=== PATIENT | female | born 1940 | race Caucasian/White ===

== ENCOUNTER 2018-04-01 13:00 | Inpatient (IN) ==
[2018-04-01 13:25] LABS: Appearance,Urine CLEAR; Bilirubin,Urine NEG (NEG); Color,Urine STRAW; Glucose,Urine (UA) NEGATIVE (NEG); Leukocyte Esterase,Urine NEG /uL (NEG); Protein,Urine NEG (NEG); Specific Gravity,Urine 1.009 (1.000-1.035); Urine Blood NEG mg/dL (<0.03); Urobilinogen,Urine NEG (NEG)
[2018-04-01 15:26] LABS: Basophils # (Auto) 0 K/mcL (0.0-0.3); Basophils % (Auto) 0.5 % (0.0-2.0); Eosinophils # (Auto) 0.1 K/mcL (0.0-0.7); Eosinophils % (Auto) 1.3 % (0.0-7.0); Granulocytes % (Auto) 69.6 % (38.0-78.0); Lymphocytes # (Auto) 1.2 K/mcL (1.5-4.8); Mean Cell Volume 90.2 fL (80.0-100.0); Mean Corpuscular HGB Conc 33.4 g/dL (31.0-36.0); Mean Corpuscular Hemoglobin 30.2 pg (26.0-34.0); Monocytes # (Auto) 0.4 K/mcL (0.1-0.9); Monocytes % (Auto) 6.6 % (1.0-12.0); Platelet Count 267 K/mcL (140-440); RBC 3.84 M/mcL (4.00-5.20); Red Cell Distribution Width 14.5 % (11.5-14.5)
[2018-04-01 15:37] LABS: Blood Urea Nitrogen 38 mg/dl (8-23)
[2018-04-09] MEDS ORDERED: ceFAZolin 1 GM VIAL IV SCH ×2 (06:00→07:15)
[2018-04-09] MEDS ORDERED: GLYCOPYRROLATE 0.2 MG/ML VIAL IV ONE (07:45)
[2018-04-09] MEDS ORDERED: ePHEDrine 50 MG/ML AMPUL IV ONE (07:45)
[2018-04-09] MEDS ORDERED: LIDOCAINE HCL/PF 100 MG/5 ML SYRINGE IV ONE (07:45)
[2018-04-09] MEDS ORDERED: fentaNYL 250 MCG/5 ML VIAL IV ONE (07:45)
[2018-04-09] MEDS ORDERED: ONDANSETRON 4 MG/2 ML VIAL IV ONE (07:45)
[2018-04-09] MEDS ORDERED: DEXAMETHASONE 10 MG/ML VIAL IV ONE (07:45)
[2018-04-09] MEDS ORDERED: MIDAZOLAM 5 MG/5 ML VIAL IV ONE (07:45)
[2018-04-09] MEDS ORDERED: PROPOFOL 200 MG/20 ML VIAL IV ONE (07:45)
[2018-04-09] MEDS ORDERED: TRANEXAMIC ACID 1,000 MG/10 ML VIAL IV ONE (08:44)
[2018-04-09] MEDS ORDERED: GENTAMICIN SULFATE 800 MG/20 ML VIAL IR ONE (08:44)
[2018-04-09] MEDS ORDERED: MEPERIDINE 25 MG/ML SYRINGE IV PRN (09:48)
[2018-04-09] MEDS ORDERED: FLUMAZENIL 0.1 MG/ML ML IV PRN (09:48)
[2018-04-09] MEDS ORDERED: METOPROLOL TARTRATE 5 MG/5 ML VIAL IV PRN (09:48)
[2018-04-09] MEDS ORDERED: NALOXONE HCL 0.4 MG/ML VIAL IV PRN (09:48)
[2018-04-09] MEDS ORDERED: PROMETHAZINE 25 MG/ML VIAL IV PRN (09:48)
[2018-04-09] MEDS ORDERED: diphenhydrAMINE 50 MG/ML VIAL IV PRN (09:48)
[2018-04-09] MEDS ORDERED: IPRATROPIUM/ALBUTEROL 3 ML AMPUL.NEB NEB PRN (09:48)
[2018-04-09] MEDS ORDERED: ATROPINE SULFATE 0.4 MG/ML VIAL IV PRN (09:48)
[2018-04-09] MEDS ORDERED: ONDANSETRON 4 MG/2 ML VIAL IV PRN ×2 (09:48→10:20)
[2018-04-09] MEDS ORDERED: ACETAMINOPHEN 1,000 MG/100 ML BOTTLE IV ONE (09:48)
[2018-04-09] MEDS ORDERED: ePHEDrine 50 MG/ML AMPUL IV PRN (09:48)
[2018-04-09] MEDS ORDERED: HYDROmorphone 2 MG/ML VIAL IV PRN (09:48)
[2018-04-09] MEDS ORDERED: METHOCARBAMOL 1,000 MG/10 ML VIAL IV PRN (09:48)
[2018-04-09] MEDS ORDERED: LACTATED RINGERS 1,000 ML IV SCH (10:00)
[2018-04-09] MEDS ORDERED: ACETAMINOPHEN 325 MG TABLET PO PRN (10:20)
[2018-04-09] MEDS ORDERED: POLYETHYLENE GLYCOL 3350 17 GM PACKET PO PRN (10:20)
[2018-04-09] MEDS ORDERED: BISACODYL 10 MG SUPP.RECT PR PRN (10:20)
[2018-04-09] MEDS ORDERED: FLEETS ADULT ENEMA PR PRN (10:20)
[2018-04-09] MEDS ORDERED: BENZOCAINE/MENTHOL 1 LOZENGE PO PRN (10:20)
[2018-04-09] MEDS ORDERED: MAGNESIUM HYDROXIDE 30 ML ORAL.SUSP PO PRN (10:20)
[2018-04-09] MEDS ORDERED: ONDANSETRON ODT 4 MG TABLET PO PRN (10:28)
[2018-04-09] MEDS ORDERED: 0.9 % SODIUM CHLORIDE 1,000 ML IV SCH (10:30)
[2018-04-09] MEDS ORDERED: BUPIVACAINE 0.5% 50 ML VIAL IJ ONE (10:31)
[2018-04-09] MEDS: fentaNYL 100 MCG/2 ML VIAL IV PRN ×2 (10:59→11:22)
--- NOTE | 2018-04-09 11:08 | Brief Operative Note ---
Date of procedure: 04/09/18 Pre-op diagnosis: DJD right ankle Post-op diagnosis: same Procedure: TAR Grafts/Implants: Yes (INvidae TAR) Anesthesia: JANET Surgeon: Cristian Buckley [facility] Psychiatrist: Danis Chambers Estimated blood loss (cc): 50 Tourniquet Time (Minutes): 120 Specimens Removed/Pathology: none sent Condition: stable Disposition: PACU
--- NOTE | 2018-04-09 11:51 | Operative Note ---
DATE OF OPERATION: 04/09/2018 PREOPERATIVE DIAGNOSIS: Osteoarthritis of the right ankle. POSTOPERATIVE DIAGNOSIS: Osteoarthritis of the right ankle. OPERATION: Right total ankle replacement. CONVERTER SUPERVISOR: Danis Chambers PA-C ANESTHESIA: General done by Annmarie Almeida CRNA. TOURNIQUET TIME: Calf level tourniquet 2 hours. ESTIMATED BLOOD LOSS: 50 mL SUMMARY OF PROCEDURE: General anesthesia was attained. The right foot, ankle, and leg were prepped and draped. A calf level tourniquet was put up. A 12.5 cm incision was made from the tibia to the talonavicular joint just medial to the tibialis anterior. This was taken down to the interval between the tibialis anterior and the extensor hallucis longus. This interval was developed. The extensor retinaculum was split, but preserved. The two bones were dissected out subperiosteally as were the gutters. The prophecy guide was placed on the tibia and position confirmed to be appropriate for the cuts on C-arm views. The cutting guide was placed. The cut was made. The bone from the tibia was removed. We then used the talar cutting guide. This was placed on the talus. The proximal talar cut was made. Preparation of the tibia was then started. We used the bracket for the C-arm as well as the guide to find the intramedullary canal. A stab incision was made in the plantar surface of the plantar fascia. The 6 mm guide was then used to open the cortices up to about 6 cm above the joint line. We then reamed to 14 and then at the very bottom 16 mm diameter in the tibia. The tibial components were then advanced into the tibia using a total of 3 stem pieces and the base plate. The sizing of the tibia was confirmed to be a 3 long. Attention was then turned to the talus. The talus was prepared and then positioned. The drill holes were made for the stem and also for the front pegs. The talar component was next impacted. We then did sizing of the poly and the best combination of full dorsiflexion and stability was with a 10 mm component. This was impacted using the appropriate instrumentation. The tourniquet was let down. Final C-arm x-rays showed satisfactory position of the components. The retinacular layer was closed with [id number] sutures of 2-0 Monocryl. The subcutaneous tissue was closed with 2-0 Monocryl and the knee incision was handsewn with mattress sutures of 2-0 nylon. The area was infiltrated with about 20 mL of Marcaine for postoperative analgesia and a sterile compressive dressing was applied followed by a Nick boot. The sponge and needle count was correct. The patient tolerated the procedure well and was taken to the recovery room in stable condition. TJF:august Job ID: [id number] Doc ID: [id number] Cristian Buckley MD
--- NOTE | 2018-04-09 12:06 | XRay Report ---
CLINICAL INFORMATION: Postsurgical follow-up TECHNIQUE: AP, oblique, lateral right ankle COMPARISON: None. FINDINGS: Bony detail is obscured by overlying cast. Status post right tibiotalar arthroplasty. Alignment appears anatomic IMPRESSION: Status post right tibiotalar arthroplasty Interpreted and Authenticated by: Hugo Estrada 04/09/18
[2018-04-09] MEDS: HYDROcodone/APAP 10/325MG TABLET PO PRN (12:16)
[2018-04-09] MEDS: 0.9 % SODIUM CHLORIDE 10 ML SYRINGE IV SCH ×2 (12:19→21:01)
[2018-04-09] MEDS ORDERED: ACETAMINOPHEN 1,000 MG/100 ML BOTTLE IV PRN (14:10)
[2018-04-09] MEDS: HYDROmorphone 2 MG/ML VIAL IV PRN ×2 (14:30→20:09)
[2018-04-09] MEDS: ceFAZolin 1 GM VIAL IV SCH (15:25)
[2018-04-09] MEDS: NACL 0.9% W/KCL 20MEQ 1,000 ML IV SCH (17:57)
[2018-04-09] MEDS: APIXABAN 2.5 MG TABLET PO SCH (20:13)
[2018-04-09] MEDS: PRAMIPEXOLE 0.25 MG TABLET PO SCH (20:13)
[2018-04-09] MEDS: QUEtiapine 100 MG TABLET PO SCH (20:13)
[2018-04-09] MEDS: SENNOSIDES 1 TABLET PO SCH (20:14)
[2018-04-09] MEDS: DOCUSATE SODIUM 100 MG CAPSULE PO SCH (20:14)
[2018-04-09] MEDS: TRAVOPROST OPHTH DROPS BOTTLE 2.5ML OU SCH (20:17)
[2018-04-09] MEDS: Dorzolamide/Timolol/Pf [Cosopt Pf Eye Drops] OU SCH (20:17)
[2018-04-09] MEDS ORDERED: APIXABAN 2.5 MG TABLET PO SCH (21:00)
[2018-04-09] MEDS ORDERED: TEMAZEPAM 15 MG CAPSULE PO PRN (21:00)
[2018-04-10] MEDS: HYDROcodone/APAP 10/325MG TABLET PO PRN ×2 (00:05→04:16)
[2018-04-10] MEDS: ceFAZolin 1 GM VIAL IV SCH (00:06)
[2018-04-10] MEDS: NACL 0.9% W/KCL 20MEQ 1,000 ML IV SCH ×3 (04:23→21:10)
[2018-04-10] MEDS: 0.9 % SODIUM CHLORIDE 10 ML SYRINGE IV SCH ×3 (04:32→21:08)
[2018-04-10] MEDS: HYDROmorphone 2 MG/ML VIAL IV PRN ×2 (06:43→19:04)
--- NOTE | 2018-04-10 07:26 | Discharge Summary ---
Providers - Providers Patient information: Note initiated : 04/10/18 at 7:24 am Service Date, if different from initiated Date: [] Patient: Monisha Kelly 77 y/o F admitted on 04/09/18 for Right Total Ankle Replacement. Chief Complaint: [] Date of admission: 04/09/18 Discharge date: 04/10/18 Attending physician: Cristian Buckley Hospitalization Hospital course: Ankle arthritis- for replacement Discharge diagnosis: arthritis ankle Secondary discharge diagnosis: atrial fibrillation Reason for admission: surgery-replacement Procedures: Right TAR Complications: none Exam - Exam Clean and dry: Yes Weight bearing status: partial Ortho Discharge Plan - General - Patient Instructions Diet: Regular Diet Activity: partial weight bearing Dressing Care: Cover dressing in shower Additional Instructions: wheelchair - Follow Up Plan Follow Up Appointments: Danis Chambers PA-C [Physician Administrative Fellow] - 04/20/18 Disposition: Home, Self-Care Prognosis: Good Rehab Potential: Good I certify that the patient requires SNF services: No Overall status at discharge: patient is not back to baseline - Orders For Discharge Prescriptions: HYDROmorphone [Dilaudid] 0 mg IV Q2HP PRN #40 vial PRN Reason: Pain Level > 6 Pending Studies Resuscitation Status Full Code Diet Regular Diet Start FriApr 09 1316 Apixaban (Eliquis) 5 mg PO BID [facility] Last Admin: 04/09/18 20:13 Dose: 5 mg Docusate Sodium (Colace) 100 mg PO BID [facility] Last Admin: 04/09/18 20:14 Dose: 100 mg Hydromorphone HCl (Dilaudid) 0 mg IV Q2HP PRN PRN Reason: PAIN LEVEL > 6 Last Admin: 04/10/18 06:43 Dose: 0.5 mg Admin: 04/09/18 20:09 Dose: 0.5 mg Admin: 04/09/18 14:30 Dose: 0.5 mg Potassium Chloride/Sodium Chloride (Nacl 0.9% W/Kcl 20meq 1000ml) 1,000 mls @ 100 mls/hr IV .Q10H [facility] Last Admin: 04/10/18 04:23 Dose: Infusion: 04/10/18 04:17 Dose: 0 mls/hr Admin: 04/09/18 17:57 Dose: 100 mls/hr Dorzolamide/Timolol/Pf [Cosopt Pf Eye Drops] 1 dose OU BID [facility] Last Admin: 04/09/18 20:17 Dose: 1 dose Pramipexole Dihydrochloride (Mirapex) 0.125 mg PO [facility] Last Admin: 04/09/18 20:13 Dose: 0.125 mg Quetiapine Fumarate (Seroquel) 200 mg PO HS [facility] Last Admin: 04/09/18 20:13 Dose: 200 mg Senna (Senokot) 2 tab PO [facility] Last Admin: 04/09/18 20:14 Dose: 2 tab Sodium Chloride (Saline Flush) 10 ml IV Q8 [facility] Last Admin: 04/10/18 04:32 Dose: 10 ml Admin: 04/09/18 21:01 Dose: Not Given Admin: 04/09/18 12:19 Dose: Not Given Travoprost (Travatan Z Ophth Drops) 1 gtt OU [facility] Last Admin: 04/09/18 20:17 Dose: 1 gtt Shift Summary 04/10/18 04:37 Shift Summary by Natali Moore Patient slept well this shift. Medicated for right ankle/lower leg pain 6-8/10 with Dilaudid 0.5 mg x1 and [place] 10 2 tabs x2 with good effect. Minimal assisted pivot transfer from bed to bedside commode using FWW and GB. 25% wt bearing only on right foot. Voids adequately, PVR 0. IV on right hand saline locked this AM. Right lower leg cast and willam wrap in place. Dressing CDI. Patient refused to have ice pack, states " I cannot feel it". [place] 50's-68 bpm, BP stable, O2 sats 96% on RA. Initialized on 04/10/18 04:37 - END OF NOTE
[2018-04-10] MEDS: amLODIPine 10 MG TABLET PO SCH (08:23)
[2018-04-10] MEDS: LOSARTAN 50 MG TABLET PO SCH (08:23)
[2018-04-10] MEDS: METOPROLOL SUCCINATE 50 MG TAB.XL.24H PO SCH (08:23)
[2018-04-10] MEDS: MULTIVIT,THER IRON,CA,FA & MIN 1 TABLET PO SCH (08:23)
[2018-04-10] MEDS: APIXABAN 2.5 MG TABLET PO SCH ×2 (08:24→21:09)
[2018-04-10] MEDS: DOCUSATE SODIUM 100 MG CAPSULE PO SCH ×2 (08:24→21:09)
[2018-04-10] MEDS: VITAMIN D3 1,000 UNIT TABLET PO SCH (08:24)
[2018-04-10] MEDS: POTASSIUM CHLORIDE 20 MEQ TABLET PO SCH (08:24)
[2018-04-10] MEDS: SERTRALINE 50 MG TABLET PO SCH (08:25)
[2018-04-10] MEDS: FUROSEMIDE 20 MG TABLET PO SCH (08:25)
[2018-04-10] MEDS: Dorzolamide/Timolol/Pf [Cosopt Pf Eye Drops] OU SCH ×2 (10:24→21:12)
[2018-04-10] MEDS: HYDROmorphone 2 MG TABLET PO PRN ×4 (12:56→21:47)
[2018-04-10] MEDS: QUEtiapine 100 MG TABLET PO SCH (21:09)
[2018-04-10] MEDS: PRAMIPEXOLE 0.25 MG TABLET PO SCH (21:09)
[2018-04-10] MEDS: SENNOSIDES 1 TABLET PO SCH (21:12)
[2018-04-10] MEDS: TRAVOPROST OPHTH DROPS BOTTLE 2.5ML OU SCH (21:12)
[2018-04-11] MEDS: HYDROmorphone 2 MG TABLET PO PRN ×2 (03:29→07:30)
[2018-04-11] MEDS: 0.9 % SODIUM CHLORIDE 10 ML SYRINGE IV SCH ×2 (03:30→05:24)
[2018-04-11] MEDS: NACL 0.9% W/KCL 20MEQ 1,000 ML IV SCH (05:26)
[2018-04-11] MEDS: POTASSIUM CHLORIDE 20 MEQ TABLET PO SCH (07:30)
--- NOTE | 2018-04-11 07:52 | Orthopedic Progress Note ---
Subjective Patient information: Note initiated : 04/11/18 at 7:50 am Service Date, if different from initiated Date: [] Patient: Monisha Kelly 77 y/o F admitted on 04/09/18 for Right Total Ankle Replacement. Chief Complaint: [S/P RIGHT TOTAL ANKLE ARTHROPLASTY] PATIENT IS DOING WELL AND REQUEST TO BE DISCHARGED TO HER HOME. SHE DENIES ANY CALF TENDERNESS. Principal diagnosis: S/P RIGHT TOTAL ANKLE REPLACEMENT Objective Vital signs: Vital Signs Temp Pulse Resp BP BP Pulse Ox 04/11/18 07:26 99.3 F H 22 173/70 92 04/11/18 03:34 98.4 F 81 18 180/70 91 04/10/18 23:45 98.5 F 72 18 160/67 93 04/10/18 21:06 98.7 F 165/60 04/10/18 19:04 64 17 180/60 92 04/10/18 18:00 72 04/10/18 15:11 97.7 F 20 118/48 93 04/10/18 12:00 98.3 F 18 111/53 95 04/10/18 10:00 68 Intake and Output 04/10/18 04/11/18 04/11/18 21:59 05:59 13:59 Intake Total 440 / 440 300 / 300 Output Total 450 / 450 500 / 500 Balance -10 / -10 300 / 300 -500 / -500 Intake: Oral 440 / 440 300 / 300 Output: Void Amount 450 / 450 500 / 500 Other: Meal Dinner Percent of Meal Consumed 25% Weight 181 lb 8 oz Intake & Output: Intake & Output 04/10/18 04/11/18 04/11/18 21:59 05:59 13:59 Intake Total 440 / 440 300 / 300 Output Total 450 / 450 500 / 500 Balance -10 / -10 300 / 300 -500 / -500 Weight 181 lb 8 oz Intake: Oral 440 / 440 300 / 300 Output: Void Amount 450 / 450 500 / 500 Other: Meal Dinner Percent of Meal Consumed 25% Incision: Yes healing, Yes clean and dry Incision clean and dry: Yes Dressing: Yes clean, Yes dry, Yes intact, Yes splint in place Weight bearing status: partial Neurological exam IM: Yes motor sensory intact, Yes neurovascular intact Extremities exam IM: Yes calf tenderness (NEGATIVE), Yes Deandra's sign (NEGATIVE BILATERALLY), Yes Foot pink and warm, Yes neurovascular intact - Labs CBC & BMP: 04/01/18 11:25 04/01/18 11:25 Labs: Orthopedic Labs 04/09/18 04/01/18 05:45 11:25 POC PT 15.2 H PT 18.8 H POC INR 1.3 H INR 1.6 H 04/01/18 11:25 Hgb 11.6 L Hct 34.6 L Assessment and Plan (1) History of total replacement of right ankle DISCHARGE TO HOME TODAY. DISCHARGE INSTRUCTIONS WERE PROVIDED. FOLLOW-UP WITH DR. MILLER IN 2 WEEKS. Status: Acute
[2018-04-11] MEDS: SERTRALINE 50 MG TABLET PO SCH (08:36)
[2018-04-11] MEDS: VITAMIN D3 1,000 UNIT TABLET PO SCH (08:36)
[2018-04-11] MEDS: DOCUSATE SODIUM 100 MG CAPSULE PO SCH (08:36)
[2018-04-11] MEDS: amLODIPine 10 MG TABLET PO SCH (08:36)
[2018-04-11] MEDS: APIXABAN 2.5 MG TABLET PO SCH (08:36)
[2018-04-11] MEDS: LOSARTAN 50 MG TABLET PO SCH (08:36)
[2018-04-11] MEDS: FUROSEMIDE 20 MG TABLET PO SCH (08:36)
[2018-04-11] MEDS: METOPROLOL SUCCINATE 50 MG TAB.XL.24H PO SCH (08:37)
[2018-04-11] MEDS: MULTIVIT,THER IRON,CA,FA & MIN 1 TABLET PO SCH (08:37)
[2018-04-11] MEDS: Dorzolamide/Timolol/Pf [Cosopt Pf Eye Drops] OU SCH (08:37)
== END 2018-04-11 12:18 | disposition home or self-care (01) | DRG 469 ==
LOC: MEDSUR 04-09 05:31
PROVIDERS: ADMIT Orthopaedic Surgery Foot and Ankle Surgery; ATTEND Orthopaedic Surgery Foot and Ankle Surgery
CPT/HCPCS: 97161